=== PATIENT | female | born 1955 | race Caucasian/White ===

== ENCOUNTER 2017-02-24 08:40 | Emergency (ER) | payer SELFPAY ==
[2017-02-24] MEDS: KETOROLAC TROMETHAMINE 60 MG/2 ML VIAL IM ONE (09:50)
[2017-02-24 10:07] VITALS: BP 048/68
--- NOTE | 2017-02-24 11:31 | Diagnostic Imaging Report ---
RASTA CHOPRA (ELVIS) - ER [facility] [address] [facility] [address] [address] Report Submission Date: Feb 24, 2017 9:53:32 AM CDT Patient Study Name: GRUPO CHIU Date: Feb 24, 2017 9:09:50 AM CDT Modality Type: CR Gender: F Description: UPPER EXTREMITY : 55 Institution: [facility] Physician: RASTA CHOPRA) - ER Right hand 3 views History: Pain after crush injury Findings: The right hand is intact without fracture, dislocation, significant arthropathy, or focal bone lesion. 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 Dorsal right hand soft tissue swelling is present. Impression: Soft tissue swelling without fracture. Electronically signed on Feb 24, 2017 9:53:32 AM CDT by: Dakota CABRAL
--- NOTE | 2017-02-24 11:56 | ED Physician Documentation ---
General Adult - HISTORIAN Historian: patient - HPI Stated Complaint: Right Hand Injury Chief Complaint: General Adult Further Comments: yes (61 year old female patient presents with complaint of left hand pain, Patient states she got her hand caught between the wall and a piece of furniture yesterday at work. States she took ibuprofen at 0500 with no relief. Rates pain 6-7/10) - ROS CONST: no problems EYES/ENT: none CVS/RESP: none GI/: none MS/SKIN/LYMPH: none NEURO/PSYCH: denies: headache - PAST HX Past History: hypertension Surgeries/Procedures: hysterectomy Allergies/Adverse Reactions: Allergies Allergy/AdvReac Type Severity Reaction Status Date / Time Sulfa (Sulfonamide Allergy Shortness Verified 02/24/17 08:49 Antibiotics) of Breath antibiotic Allergy Blister Uncoded 07/10/16 17:14 Home Medications: Ambulatory Orders Medication Instructions Recorded Ketorolac Tromethamine [Toradol] 10 mg PO TID #15 tablet 02/24/17 Lisinopril [Lisinopril] 20 mg PO DAILY 02/24/17 - SOCIAL HX Smoking History: cigarettes - FAMILY HX Family History: No - VITAL SIGNS Vital Signs: Vital Signs Temp Pulse Resp BP Pulse Ox 98 F 78 18 048/68 98 02/24/17 08:40 02/24/17 09:55 02/24/17 09:55 02/24/17 09:55 02/24/17 09:55 - REVIEWED ASSESSMENTS Nursing Assessment Reviewed: Yes Vitals Reviewed: Yes ED Results Lab/Radiology - Radiology Radiology Impressions: Right hand 3 views History: Pain after crush injury Findings: The right hand is intact without fracture, dislocation, significant arthropathy, or focal bone lesion. 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 Dorsal right hand soft tissue swelling is present. Impression: Soft tissue swelling without fracture. Electronically signed on Feb 24, 2017 9:53:32 AM CDT by: Dakota Tucker - Orders Orders: ED Orders Category Date Time Status Marcelino Wrap Affected Extremity 1T Care 02/24/17 09:50 Active HAND XRAY [HAND 3 VIEWS OR MORE] [RAD] Stat Exams 02/24/17 08:43 Completed Ketorolac Tromethamine [Toradol] Med 02/24/17 09:39 Discontinued 60 mg IM NOW ONE General Adult Physical Exam - PHYSICAL EXAM GENERAL APPEARANCE: mild distress RESPIRATORY: no resp distress, chest non-tender, breath sounds normal CVS: reg rate & rhythm, heart sounds normal, equal pulses, no murmur, no gallop , PMI nml, no JVD, no friction rub, 24 EXTREMITIES: non-tender, normal range of motion, no evidence of injury, no edema , other (left hand with edema over index finger MCP joint; pain with hvac field service technician. ) NEURO: oriented X3, CN's nml as tested, motor nml, sensation nml, mood/affect nml Discharge Clincal Impression: Hand contusion Qualifiers: Encounter type: initial encounter Laterality: right Qualified Code(s): S60.221A - Contusion of right hand, initial encounter Prescriptions: Ketorolac Tromethamine [Toradol] 10 mg PO TID #15 tablet Referrals: Darcy Quiñones MD [Primary Care Provider] - 2 Days Home Medications: Ambulatory Orders Ketorolac Tromethamine [Toradol] 10 mg PO TID #15 tablet 02/24/17 Lisinopril [Lisinopril] 20 mg PO DAILY 02/24/17 Condition: Stable Disposition: 01 HOME, SELF-CARE Decision to Admit: NO Decision Time: 09:45
== END 2017-02-24 09:55 | disposition home or self-care (01) ==
LOC: ED 08:40
DX: S60.211A Contusion of right wrist, initial encounter (principal); W23.0XXA Caught, crushed, jammed, or pinched between moving objects, initial encounter; Y93.9 Activity, unspecified; Y99.0 Civilian activity done for income or pay
CPT/HCPCS: 73130; J1885; 96372; 99283

== ENCOUNTER 2019-04-18 18:39 | Emergency (ER) | payer OTHER ==
[2019-04-18] MEDS ORDERED: HYDROcodone /APAP 5/325 1 EACH TABLET PO ONE (19:55)
--- NOTE | 2019-04-18 19:59 | ED Physician Documentation ---
Lower Extremity Injury - HISTORIAN Historian: patient - HPI Stated Complaint: stubbed toe on pipe Chief Complaint: Lower Extremity Injury Additional Information: Patient presents to ED with right toe pain after stubbing it on a pipe. Onset: hours (2) Where: home Severity: moderate Context: barefoot Associated Symptoms:: swelling Modifying Factors:: pain on movement - ROS CONST: no problems CVS/RESP: none GI/: denies: nausea, vomiting MS/SKIN/LYMPH: other (right great toe swelling) - PAST HX Past History: none Allergies/Adverse Reactions: Allergies Allergy/AdvReac Type Severity Reaction Status Date / Time Sulfa (Sulfonamide Allergy Shortness Verified 04/18/19 19:49 Antibiotics) of Breath antibiotic Allergy Blister Uncoded 04/18/19 19:49 Home Medications: Ambulatory Orders Medication Instructions Recorded Lisinopril 60 mg PO DAILY 04/18/19 - SOCIAL HX Smoking History: non-smoker Alcohol Use: none Drug Use: none - FAMILY HX Family History: none - VITAL SIGNS Vital Signs: Vital Signs Temp Pulse Resp BP Pulse Ox 97 H 16 172/87 97 04/18/19 18:39 04/18/19 18:39 04/18/19 18:39 04/18/19 18:39 - REVIEWED ASSESSMENTS Nursing Assessment Reviewed: Yes Vitals Reviewed: Yes Progress - Results/Orders Results/Orders: Report Submission Date: Apr 18, 2019 7:59:45 PM CDT Patient Study Name: GRUPO CHIU Date: Apr 18, 2019 7:35:18 PM CDT Modality Type: DX Gender: F Description: FOOT 3 VIEWS OR MORE : 55 Institution: [facility] Physician: ANNELISE QUIROZ Left foot, 3 views HISTORY Injury, pain FINDINGS Plantar calcaneal spur is present. Degenerative changes noted at the first metatarsal-phalangeal joint. There is no acute fracture, dislocation or abnormal bone destruction. IMPRESSION Mild degenerative change but no acute abnormality. Electronically signed on Apr 18, 2019 7:59:45 PM CDT by: Nahun Wallace ED Results Lab/Radiology - Orders Orders: ED Orders Category Date Time Status FOOT 3 VIEWS OR MORE [RAD] Stat Exams 04/18/19 Taken HYDROcodone /APAP 5/325 [Perkins 5/325] Med 04/18/19 19:55 Once 1 each PO NOW ONE Lower Extremities Injury Phy - Physical Exam General Appearance: no acute distress Hips: bilateral hip: non-tender, normal inspection, normal range of motion, no evidence of injury Legs: bilateral: non-tender, normal inspection, normal range of motion, no evidence of injury Knees: bilateral: non-tender, normal inspection, normal range of motion, no evidence of injury Ankle: bilateral: non-tender, normal inspection, normal range of motion, no evidence of injury Foot: right foot: ecchymosis (right great toe), limited range of motion (right great toe), soft tissue tenderness (right great toe), swelling (right great toe) Gait: normal Neuro/Vascular/Tendon: no vascular compromise, motor nml, sensation nml Head/ENT: nml inspection Neck/Back: nml inspection Resp/CVS: chest non-tender, breath sounds nml, heart sounds nml Abdomen: non-tender, pelvis stable Discharge Clincal Impression: Contusion of right great toe without damage to nail Qualifiers: Encounter type: initial encounter Qualified Code(s): S90.111A - Contusion of right great toe without damage to nail, initial encounter Referrals: Darcy Quiñones MD [Primary Care Provider] - 2 Days Additional Instructions: 1. Tylenol and/or Ibuprofen as needed for pain. You may take these together at the same time for better pain control 2. Keep foot elevated about the level of your heart when at rest 3. Apply ice to the affected area for comfort. 4. Follow up with PCP within 1 week 5. Return to ER for new or worsening symptoms Condition: Stable Disposition: 01 HOME, SELF-CARE Decision to Admit: NO Date of Decison to Admit: 04/18/19 Decision Time: 20:04
[2019-04-18 20:18] VITALS: BP 168/72
--- NOTE | 2019-04-19 05:37 | Diagnostic Imaging Report ---
ANNELISE QUIROZ [facility] [address] [facility].[address] [address] Report Submission Date: Apr 18, 2019 7:59:45 PM CDT Patient Study Name: GRUPO CHIU Date: Apr 18, 2019 7:35:18 PM CDT Modality Type: DX Gender: F Description: FOOT 3 VIEWS OR MORE : 55 Institution: [facility] Physician: ANNELISE QUIROZ Left foot, 3 views HISTORY Injury, pain FINDINGS Plantar calcaneal spur is present. Degenerative changes noted at the first metatarsal-phalangeal joint. There is no acute fracture, dislocation or abnormal bone destruction. IMPRESSION Mild degenerative change but no acute abnormality. Electronically signed on Apr 18, 2019 7:59:45 PM CDT by: Nahun CABRAL
== END 2019-04-18 20:15 | disposition home or self-care (01) ==
LOC: ED 18:39
DX: S90.111A Contusion of right great toe without damage to nail, initial encounter (principal); W22.8XXA Striking against or struck by other objects, initial encounter
CPT/HCPCS: 73630; 99282; A9270-GY

== ENCOUNTER 2019-06-19 14:43 | Outpatient (CLI) | payer OTHER ==
--- NOTE | 2019-06-19 15:48 | Diagnostic Imaging Report ---
TIP FREY [facility] [address] [facility].[address] [address] Report Submission Date: Jun 19, 2019 3:37:51 PM CDT Patient Study Name: GRUPO CHIU Date: Jun 19, 2019 2:54:41 PM CDT Modality Type: US Gender: F Description: US THYROID SOFT TISS HEAD/NCK : 55 Institution: [facility] Physician: TIP FREY Exam: Ultrasound of the soft tissues in neck. History: Left-sided neck mass for several years. Real-time grayscale imaging over the area of interest is performed. A prominent muscular structure appears to correspond to the palpable abnormality. No other solid mass or cyst is identified. Impression: A muscular structure appears to correspond to the palpable abnormality. CT may be beneficial to further evaluate. Electronically signed on Jun 19, 2019 3:37:51 PM CDT by: Manfred CABRAL
== END 2019-06-19 14:45 ==
LOC: RAD 14:43
PROVIDERS: ATTEND Nurse Practitioner Family
DX: R22.1 Localized swelling, mass and lump, neck (principal)
CPT/HCPCS: 76536

== ENCOUNTER 2019-07-03 13:00 | Outpatient (CLI) | payer OTHER ==
[2019-07-12 09:06] LABS: eGFR (Non-African) > 60
--- NOTE | 2019-07-18 10:15 | Diagnostic Imaging Report ---
TIP FREY [facility] [address] [address] Report Submission Date: Jul 03, 2019 2:46:47 PM CDT Patient Study Name: GRUPO CHIU Date: Jul 03, 2019 2:10:00 PM CDT Modality Type: CT\SR Gender: F Description: CT STN W/ CONTRAST : 55 Institution: [facility] Physician: TIP FREY Examination: CT neck History: MASS ON LEFT ANTERIOR NECK AREA X 15 YEARS Comparison exams: None provided Technique: CT neck with contrast Findings: Within the left anterior neck in the region adjacent to the thyroid gland is a low density structure measuring 3.0 x 2.2 x 4.9 cm. Central HU of - 122. Parotid and submandibular glands are without abnormality. No abnormal enhancement. No pathologic adenopathy involving the carotid, jugular and posterior cervical chain regions. Base of the tongue, lois pharynx and prevertebral spaces are without abnormality. Trachea and esophagus are midline. No lower cervical chain irregularities. Thyroid gland without abnormality. Apical lung callahan demonstrate emphysematous changes. Thoracic spine degenerative spurring. Vascular calcifications. Skull base structures including brain parenchyma are without abnormality. Impression: Soft tissue lipoma corresponding to reported neck lesion. No evidence for other neck mass or inflammatory process. Electronically signed on Jul 03, 2019 2:46:47 PM CDT by: [place] CABRAL
== END 2019-07-03 13:10 ==
LOC: LAB 13:00
PROVIDERS: ATTEND Nurse Practitioner Family
DX: R22.1 Localized swelling, mass and lump, neck (principal)
CPT/HCPCS: 36415; 70491; 82565; 84520; Q9967